=== PATIENT | male | born 1990 | race Caucasian/White ===

== ENCOUNTER 2020-05-23 19:35 | Emergency (ER) | payer OTHER ==
[~2020-05-23 19:35] MED LIST: ZOFRAN4 MG PO
== END 2020-05-23 20:55 | disposition home or self-care (01) ==
LOC: ER1 19:35
DX: S39.012A Strain of muscle, fascia and tendon of lower back, initial encounter (principal); Z79.899 Other long term (current) drug therapy; F17.200 Nicotine dependence, unspecified, uncomplicated; X58.XXXA Exposure to other specified factors, initial encounter
CPT/HCPCS: 96372; 99283; J1885